=== PATIENT | male | born 1950 | race Caucasian/White ===

== ENCOUNTER 2021-11-27 11:51 | Day surgery (SDC) | payer MEDICARE ==
[2005-10-08 19:23] VITALS: BP 132/82
[~2021-11-27] VITALS: Ht 177.8 cm; Wt 91.6 kg
[2021-11-27] VITALS (8 sets, daily range): BP systolic 117–165; BP diastolic 61–85; PULSE 58–77; TEMP 97.6–98.4
[2021-11-27] MEDS ORDERED: GLUCOPHAGE850 MG/TAB PO (13:01)
[2021-11-27] MEDS ORDERED: PRINIVIL40 MG PO (13:02)
[2021-11-27] MEDS ORDERED: LIPITOR20 MG PO (13:02)
[2021-11-27] MEDS ORDERED: NORVASC 10MG10 MG PO (13:02)
[2021-11-27] MEDS ORDERED: FLOMAX 0.40.4 MG/CAP PO (13:03)
--- NOTE | 2021-11-27 17:06 | NUR ---
Pt doing well since arriving to the floor from [facility]. He is alert and oriented, some pain complaints from bladder spasms. Pt states that the pain comes and goes. Output is clear with no clots seen. Oriented pt to his room educated him on room service and reviewed plan of care.
--- NOTE | 2021-11-27 20:20 | NUR ---
PT RESTING IN BED. HAS OCCASIONAL BLADDER SPASM. DECLINED B&O SUPP. ASSISTED UP TO BR FOR STOOL. WHATLEY PINK/RED INCRESED CBI FLOW. NO CLOTS AT THIS TIME.
[2021-11-27 21:51] LABS: HEMOGLOBIN 14.3 g/dl (13.5-18.0); MEAN CELL VOLUME 86 fl (80.0-100.0); MEAN CORPUSCULAR HEMOGLOBIN 29 pg (27-31); MEAN CORPUSCULAR HGB CONC 34 g/dl (33.0-37.0); MEAN PLATELET VOLUME 12.4 fl (7.4-10.4); PLATELET COUNT 196 K/mm3 (130-400); RED BLOOD COUNT 4.89 M/mm3 (4.20-5.60); REDCELL DISTRIBUTION WIDTH-CV 12.5 % (11.5-14.5)
[2021-11-27 22:07] LABS: CALCIUM 8.9 mg/dL (8.4-10.2); CREATININE, serum 1.05 mg/dL (0.72-1.25); POTASSIUM 4.1 mmol/L (3.5-4.5)
[2021-11-27 22:17] LABS: BAND 3 % (0-10); LYMPHOCYTE 8 % (20.0-51.0); NEUTROPHILS 89 % (42.0-75.2); PLATELET ESTIMATE NORMAL (NORMAL)
[2021-11-28 00:11] VITALS: BP 122/68; PULSE 62; TEMP 98
--- NOTE | 2021-11-28 02:52 | NUR ---
CBI SLOW RATE. F/C DRAINING LIGHT DILUTE RED WITH OCCASIOANL SMALL CLOT. PT DENIES PAIN.
[2021-11-28 04:11] VITALS: BP 149/73; PULSE 61; TEMP 97.7
--- NOTE | 2021-11-28 06:24 | NUR ---
PT GETTING RELIEF FROM B&0 AT THIS TIME. RESTING. TOTAL UO 1075CC/12HR.
[2021-11-28 07:36] VITALS: BP 146/76; PULSE 66; TEMP 98.1
--- NOTE | 2021-11-28 09:07 | NUR ---
pt doing well this morning. Output with CBI was clear pink with CBI running in at slow rate. Dr Major has been in to see pt, orders wrote for prime and pull, gutierrez catheter removed at this time. Educated pt on using the urinal to void and to notify nursing each time he goes. Pt verbalized understanding.
--- NOTE | 2021-11-28 10:34 | NUR ---
Initial visit; Patient thanked Environmental Protection Economist for looking in on him and offering God's blessings. Patient states he hopes to be discharged sometime today.
--- NOTE | 2021-11-28 10:54 | NUR ---
Pt doing well since having the catheter out. Pt has voided x2. Output is clear, light red in color. Encouraged pt to continue to drink plenty of water. All questions answered
[2021-11-28 11:34] VITALS: BP 137/73; PULSE 65; TEMP 87.8; TEMP 97.8
--- NOTE | 2021-11-28 13:37 | NUR ---
tray worker met with patient to complete intake and discuss discharge plan. Patient lives at home with his Alesia ([phone]) Patient's present at bedside. Patient is independent with his ADL's and does not utilize any DME to assist with mobility. Patient has no home oxygen needs. PCP is Dr. Estrella and he utilizes [facility] pharmacy for medication needs. Patient states that he does not have a DP- estbalished and is not interested in creating one at this time. Patient is planning on returning home with no concerns. Discharge plan: Home with spouse
--- NOTE | 2021-11-28 13:47 | NUR ---
Pt continues to do well, no pain complaints. He has voided x5, output is clear and has turned from pink to light pink output. Pt ready for discharge
--- NOTE | 2021-11-28 13:50 | NUR ---
Reviewed discharge instructions with pt and his . All questions answered. Instructed pt to use call light when he was dressed so that he could be escorted out
== END 2021-11-28 14:07 | disposition home or self-care (01) ==
LOC: SDCO 11:51 → SURG 16:40 → SDCO 11-28 14:07
PROVIDERS: Nurse Practitioner Family
DX: C67.9 Malignant neoplasm of bladder, unspecified (principal); N30.90 Cystitis, unspecified without hematuria; E11.65 Type 2 diabetes mellitus with hyperglycemia; N40.0 Benign prostatic hyperplasia without lower urinary tract symptoms; I10 Essential (primary) hypertension; E78.5 Hyperlipidemia, unspecified; Z87.891 Personal history of nicotine dependence; Z79.84 Long term (current) use of oral hypoglycemic drugs; Z79.899 Other long term (current) drug therapy
CPT/HCPCS: OP; 99222; C1769; J0690; J1100; J1170; J1815; J2405; J2704; J3010; J7120; Q9967

== ENCOUNTER 2021-11-30 13:02 | Emergency (ER) | payer MEDICARE ==
[~2021-11-30] VITALS: Ht 177.8 cm; Wt 90.0 kg
[~2021-11-30 13:02] MED LIST: FLOMAX 0.40.4 MG/CAP PO; GLUCOPHAGE850 MG/TAB PO; LIPITOR20 MG PO; NORVASC 10MG10 MG PO; PRINIVIL40 MG PO
[2021-11-30 13:45] LABS: BASO % 0.3 % (0.0-2.0); EOS # 0.1 K/mm3 (0.0-0.7); EOS % 0.5 % (0.0-4.0); GRAN # 8.8 K/mm3 (1.4-6.5); GRAN % 82.5 % (42.2-75.2); HEMATOCRIT 43.3 % (42.0-52.0); HEMOGLOBIN 14.6 g/dl (13.5-18.0); LYMPH % 9.1 % (20.0-51.0); MEAN CELL VOLUME 86 fl (80.0-100.0); MEAN CORPUSCULAR HEMOGLOBIN 29 pg (27-31); MEAN CORPUSCULAR HGB CONC 34 g/dl (33.0-37.0); MEAN PLATELET VOLUME 12.1 fl (7.4-10.4); MONO # 0.7 K/mm3 (0.1-0.6); MONO % 6.9 % (1.7-9.3); PLATELET COUNT 152 K/mm3 (130-400); RED BLOOD COUNT 5.01 M/mm3 (4.20-5.60); REDCELL DISTRIBUTION WIDTH-CV 12.3 % (11.5-14.5)
[2021-11-30 14:03] LABS: ALANINE AMINOTRANSFERASE 15 U/L (0-55); ALBUMIN 3.6 gm/dL (3.4-4.8); ALKALINE PHOSPHATASE 91 U/L (40-150); ANION GAP 15 mmol/L (7-16); AST,SGOT 20 U/L (5-34); BILIRUBIN,TOTAL 1.8 mg/dL (0.2-1.2); BLOOD UREA NITROGEN 15 mg/dL (8-26); CALCIUM 8.7 mg/dL (8.4-10.2); CARBON DIOXIDE 21 mmol/L (23-31); CHLORIDE 99 mmol/L (98-107); CREATININE, serum 0.96 mg/dL (0.72-1.25); GLUCOSE 157 mg/dL (70-99); SODIUM 135 mmol/L (136-145); TOTAL PROTEIN 7.5 gm/dL (6.2-8.1)
[2021-11-30 14:10] LABS: TROPONIN-I < 0.010 ng/mL (0.00-0.033)
[2021-11-30 14:37] LABS: COLLECTION METHOD CLEAN CATCH
[2021-11-30 14:45] LABS: MUCOUS Present (NOT PRESENT); PH 6 (5-8); SQUAMOUS EPITHELIAL 0-2 /hpf (0-10); URINE APPEARANCE Clear (CLEAR/HAZY); URINE BACTERIA Rare /hpf (NONE SEEN); URINE BILIRUBIN Negative (NEGATIVE); URINE BLOOD 3+ (NEGATIVE); URINE COLOR Yellow (YELLOW); URINE GLUCOSE Negative (NEGATIVE); URINE KETONE 1+ (NEGATIVE); URINE LEUKOCYTE ESTERASE Negative (NEGATIVE); URINE NITRATE Negative (NEGATIVE); URINE PROTEIN(semi-quant) Negative (NEGATIVE); URINE RBC >50 /hpf (0-2); URINE UROBILINOGEN Negative (NEGATIVE)
[2021-11-30] MEDS ORDERED: CIPRO 500MG TA500 MG PO (16:06)
[2021-11-30 16:22] VITALS: BP 161/74; PULSE 90; TEMP 101.9
== END 2021-11-30 16:22 | disposition home or self-care (01) ==
LOC: COL.ER 13:02
PROVIDERS: Emergency Medicine
DX: R50.9 Fever, unspecified (principal); Z87.891 Personal history of nicotine dependence; Z20.822 Contact with and (suspected) exposure to COVID-19
CPT/HCPCS: J7030; Q9967

== ENCOUNTER 2022-09-19 08:51 | Day surgery (SDC) | payer MEDICARE ==
[2005-10-08 19:23] VITALS: BP 132/82
[~2022-09-19] VITALS: Ht 177.8 cm; Wt 92.0 kg
[~2022-09-19 08:51] MED LIST changes: +CIPRO 500MG TA500 MG PO
[2022-09-19] MEDS ORDERED: COREG 6.256.25 MG/TA PO (09:51)
[2022-09-19] MEDS ORDERED: LIPITOR 80MG80 MG PO (09:52)
[2022-09-19] MEDS ORDERED: GLUCOTROL XL5 MG/TAB PO (09:53)
[2022-09-19 11:00] VITALS: BP 152/74; PULSE 56; TEMP 98.8
[2022-09-19 12:40] VITALS: BP 148/73; PULSE 58; TEMP 97.3
[2022-09-19 12:55] VITALS: BP 153/86
[2022-09-19 13:00] VITALS: BP 145/77; PULSE 56; TEMP 97.5
--- NOTE | 2022-09-19 13:30 | NUR ---
1240 RECEIVED POST PROCEDURE REPORT FROM PACU NURSE, GUILLERMO HERNANDEZ. PT IS ALERT AND ORIENTED AND HAS BEEN DRINKING WATER. 1245 PT GIVEN A MUFFIN TO EAT AND A DIET PEPSI TO DRINK. 1250 PT INCONTINENT OF PINK TINTED URINE WITH SMALL BLOOD CLOT. REPORTING SOME PAIN WITH URINATION, BUT RESOLVES AFTER VOIDING. 1305 DISCHARGE INSTRUCTIONS AND PATIENT EDUCATION MATERIALS REVIEWED WITH PT AND HIS . QUESTIONS INVITED. PT AND HIS VERBALIZE UNDERSTANDING. 1320 PT TO LOBBY VIA WHEEL CHAIR FOR RIDE HOME WITH IN POV.
== END 2022-09-19 13:30 | disposition home or self-care (01) ==
LOC: SDCO 08:51
DX: N30.20 Other chronic cystitis without hematuria (principal); Z85.51 Personal history of malignant neoplasm of bladder; Z87.891 Personal history of nicotine dependence
CPT/HCPCS: J0690; J1100; J2405; J2704; J3010; J7120